=== PATIENT | female | born 1950 | race Two or more races ===

== ENCOUNTER → 2018-04-04 | Outpatient (CLI) | payer OTHER, BC | LOC: FIMAGING 12:36 | PROVIDERS: ATTEND Family Medicine | DX: Z13.820 Encounter for screening for osteoporosis (principal); M81.0 Age-related osteoporosis without current pathological fracture; E55.9 Vitamin D deficiency, unspecified; E53.8 Deficiency of other specified B group vitamins; Z87.442 Personal history of urinary calculi ==